=== PATIENT | female | born 1980 | race Caucasian/White ===

== ENCOUNTER 2017-09-01 07:30 | Emergency (ER) | payer OTHER ==
--- NOTE | 2017-09-01 08:01 | ER Document Report ---
ED General - General Chief Complaint: Fall Injury Stated Complaint: FALL LEG PAIN Time Seen by Provider: 09/01/17 07:33 Mode of Arrival: Medic Information source: Patient Notes: 36-year-old female states that she was intoxicated last night and fell multiple times, did not think anything of her injuries today she awoke and could not bear weight on her right leg. Patient brought in by EMS TRAVEL OUTSIDE OF THE [place] IN LAST 30 DAYS: No - HPI Onset: This morning Onset/Duration: Sudden Quality of pain: Sharp Severity: Severe Pain Level: 5 Associated symptoms: Body/muscle aches Exacerbated by: Movement Relieved by: Denies Similar symptoms previously: No Recently seen / treated by doctor: No - Related Data Allergies/Adverse Reactions: dexamethasone [From Decadron] Allergy (Verified 09/01/17 07:51) diazepam [From Valium] Allergy (Verified 09/01/17 07:51) diphenhydramine [From Benadryl] Allergy (Verified 09/01/17 07:51) haloperidol lactate [From Haldol] Allergy (Verified 09/01/17 07:51) ketorolac [From Toradol] Allergy (Verified 09/01/17 07:51) metoclopramide HCl [From Reglan] Allergy (Verified 09/01/17 07:51) tramadol [Tramadol] Allergy (Verified 09/01/17 07:51) Past Medical History - Social History Smoking Status: Never Smoker Cigarette use (# per day): No Chew tobacco use (# tins/day): No Smoking Education Provided: No Family History: Arthritis, CAD, CVA, Hyperlipidemia, Hypertension, Malignancy Pulmonary Medical History: Reports: Hx Asthma, Hx Bronchitis - In [facility] Neurological Medical History: Reports: Hx Seizures - 3 years ago, told it was from a medication Musculoskeltal Medical History: Reports Hx Arthritis, Reports Hx Musculoskeletal Deformity, Reports Hx Musculoskeletal Trauma Traumatic Medical History: Reports: Hx Fractures - avascular necrosis Past Surgical History: Reports: Hx Appendectomy, Hx Cholecystectomy, Hx Orthopedic Surgery - core decompression bilateral hips. Denies: Hx Hysterectomy , Hx Pacemaker - Immunizations Immunizations up to date: Yes Hx Diphtheria, Pertussis, Tetanus Vaccination: Yes Review of Systems - Review of Systems Notes: REVIEW OF SYSTEMS: CONSTITUTIONAL : Denies fever, chills, or sweats. Denies recent illness. EENT: Denies eye, ear, throat, or mouth pain or symptoms. Denies nasal or sinus congestion or discharge. Denies throat, tongue, or mouth swelling or difficulty swallowing. CARDIOVASCULAR: Denies chest pain. Denies palpitations or racing or irregular heart beat. Denies ankle edema. RESPIRATORY: Denies cough, cold, or chest congestion. Denies shortness of breath, difficulty breathing, or wheezing. GASTROINTESTINAL: Denies abdominal pain or distention. Denies nausea, vomiting , or diarrhea. Denies blood in vomitus, stools, or per rectum. Denies black, tarry stools. Denies constipation. GENITOURINARY: Denies difficulty urinating, painful urination, burning, frequency, blood in urine, or discharge. FEMALE GENITOURINARY: Denies vaginal bleeding, heavy or abnormal periods, irregular periods. Denies vaginal discharge or odor. MUSCULOSKELETAL: Admits to right leg pain SKIN: Denies rash, lesions or sores. HEMATOLOGIC : Denies easy bruising or bleeding. LYMPHATIC: Denies swollen, enlarged glands. NEUROLOGICAL: Denies confusion or altered mental status. Denies passing out or loss of consciousness. Denies dizziness or lightheadedness. Denies headache. Denies weakness or paralysis or loss of use of either side. Denies problems with gait or speech. Denies sensory loss, numbness, or tingling. Denies seizures. PSYCHIATRIC: Denies anxiety or stress. Denies depression, suicidal ideation, or homicidal ideation. ALL OTHER SYSTEMS REVIEWED AND NEGATIVE. PHYSICAL EXAMINATION: GENERAL: Well-appearing, well-nourished and in no acute distress. HEAD: Atraumatic, normocephalic. EYES: Pupils equal round and reactive to light, extraocular movements intact, conjunctiva are normal. ENT: Nares patent, oropharynx clear without exudates. Moist mucous membranes. NECK: Normal range of motion, supple without lymphadenopathy LUNGS: Breath sounds clear to auscultation bilaterally and equal. No wheezes rales or rhonchi. HEART: Regular rate and rhythm without murmurs ABDOMEN: Soft, nontender, nondistended abdomen. No guarding, no rebound. No masses appreciated. Female : deferred Musculoskeletal: Limited range of motion of the right lower extremity secondary to pain, patient is able to move her digits pulses are intact foot is warm to touch NEUROLOGICAL: Cranial nerves grossly intact. Normal speech, normal gait. Normal sensory, motor exams PSYCH: Normal mood, normal affect. SKIN: Warm, Dry, normal turgor, no rashes or lesions noted. Dictation was performed using [employer] voice recognition software Course - Re-evaluation Re-evalutation: 09/01/17 08:01 Patient given Dilaudid prior to arrival x-ray immediately ordered 09/01/17 08:33 [facility] paged for transfer due to xray findings 09/01/17 09:02 [facility] surgeon stated pt can just follow up and to place in splint [place] paged 09/01/17 09:30 Dr Fabiola dawkins accepts patient for transfer to ED - Diagnostic Test Radiology reviewed: Image reviewed, Reports reviewed Discharge - Discharge Clinical Impression: Tibia/fibula fracture Qualifiers: Encounter type: initial encounter Fracture type: closed Laterality: right Qualified Code(s): S82.201A - Unspecified fracture of shaft of right tibia, initial encounter for closed fracture; S82.401A - Unspecified fracture of shaft of right fibula, initial encounter for closed fracture; S82.401A - Unspecified fracture of shaft of right fibula, initial encounter for closed fracture Condition: Stable Disposition: [facility]
[2017-09-01] MEDS ORDERED: FENTANYL CITRATE INJ/PF 100 MCG/2 ML AMPUL IV ONE (08:16)
--- NOTE | 2017-09-01 09:06 | RADIOLOGY REPORT (SQ) ---
EXAM DESCRIPTION: TIBIA FIBULA RIGHT COMPLETED DATE/TIME: 09/01/2017 8:20 am REASON FOR STUDY: fall injury mid shaft COMPARISON: None. NUMBER OF VIEWS: Two views. TECHNIQUE: Two radiographic images acquired of the right tibia and fibula to include the knee and an kle in at least one projection. LIMITATIONS: None. FINDINGS: MINERALIZATION: Normal. BONES: Lower 3rd right tibial diaphysis spiral fracture with lateral displacement of the distal fract ure fragment. No over riding of fracture fragments. Accompanying spiral fracture of the proximal and distal right fibular metaphysis. Nonstandard radiographic positioning at the ankle, however, ankle mortise does not appear disrupted. Knee joint intact. SOFT TISSUES: No obvious swelling or foreign body. OTHER: No other significant finding. IMPRESSION: Acute spiral fractures of the distal right tibia and proximal and distal right fibula. No gross disruption of the ankle mortise. TECHNICAL DOCUMENTATION: JOB ID: [id number]- All Rights Reserved
[2017-09-01] MEDS ORDERED: HYDROMORPHONE HCL INJ/PF 2 MG/ML AMPULE IV ONE (09:41)
[2017-09-01 09:57] VITALS: BP 129/110
== END 2017-09-01 10:15 | disposition short-term general hospital (02) ==
LOC: ER 07:30
DX: S82.241A Displaced spiral fracture of shaft of right tibia, initial encounter for closed fracture (principal); S82.441A Displaced spiral fracture of shaft of right fibula, initial encounter for closed fracture; W19.XXXA Unspecified fall, initial encounter; Y93.89 Activity, other specified; J45.909 Unspecified asthma, uncomplicated; Z88.8 Allergy status to other drugs, medicaments and biological substances
CPT/HCPCS: 99284; 96374; 73590; 96375; 29505; J3010; J1170

== ENCOUNTER 2017-09-16 09:48 | Emergency (ER) | payer OTHER ==
[2017-09-16] MEDS ORDERED: ONDANSETRON HCL INJ/PF 4 MG/2 ML SDV IM ONE (10:02)
[2017-09-16] MEDS ORDERED: HYDROMORPHONE HCL INJ/PF 2 MG/ML AMPULE IM ONE ×2 (10:02→11:33)
[2017-09-16] MEDS ORDERED: ONDANSETRON 4 MG TAB.RAPDIS PO ONE (10:04)
[2017-09-16] MEDS ORDERED: PROCHLORPERAZINE EDISYLATE INJ 10 MG/2 ML VIAL IM ONE (10:04)
--- NOTE | 2017-09-16 10:05 | ER Document Report ---
ED Extremity Problem, Lower - General Chief Complaint: Leg Pain Stated Complaint: LEG PAIN Time Seen by Provider: 09/16/17 09:58 Mode of Arrival: Wheelchair Information source: Patient, Relative, [facility] Records Notes: This 36-year-old female patient comes emergency room for severe pain in her right leg. She was seen here on 09-16 after suffering a fall causing a displaced spiral fracture to her right tibia and displaced fractures of the right proximal fibula and distal fibula. She was transferred to [facility] where she had a michael placed in the tibia, a screw placed in the distal fibula fracture, and the proximal fibula fracture was manipulated into position. She presently has Percocet for pain, she states it causes severe nausea and she cannot tolerate the pain medication and the pain is getting out of control. She was not prescribed any nausea medication to take with the Percocet. There has been no other injury or event to worsen her pain other than the nausea and inability to keep down the pain medication. She is asking for medication for nausea control and pain relief at this time to "get ahead of the pain" so that she can control it with her oral medications. There are no other complaints. TRAVEL OUTSIDE OF THE [place] IN LAST 30 DAYS: No - Related Data Allergies/Adverse Reactions: dexamethasone [From Decadron] Allergy (Verified 09/16/17 09:49) diazepam [From Valium] Allergy (Verified 09/16/17 09:49) diphenhydramine [From Benadryl] Allergy (Verified 09/16/17 09:49) haloperidol lactate [From Haldol] Allergy (Verified 09/16/17 09:49) ketorolac [From Toradol] Allergy (Verified 09/16/17 09:49) metoclopramide HCl [From Reglan] Allergy (Verified 09/16/17 09:49) tramadol [Tramadol] Allergy (Verified 09/16/17 09:49) Past Medical History - General Information source: Patient, Relative, [facility] Records - Social History Smoking Status: Never Smoker Cigarette use (# per day): No Chew tobacco use (# tins/day): No Smoking Education Provided: No Frequency of alcohol use: Occasional Drug Abuse: None Lives with: Family, Spouse/Significant other Family History: Arthritis, CAD, CVA, Hyperlipidemia, Hypertension, Malignancy Patient has suicidal ideation: No Patient has homicidal ideation: No - Past Medical History Cardiac Medical History: Reports: None Pulmonary Medical History: Reports: Hx Asthma, Hx Bronchitis - In college EENT Medical History: Reports: None Neurological Medical History: Reports: Hx Seizures - 3 years ago, told it was from a medication Endocrine Medical History: Reports: None Renal/ Medical History: Reports: None GI Medical History: Reports: None Musculoskeltal Medical History: Reports Hx Arthritis, Reports Hx Musculoskeletal Deformity, Reports Hx Musculoskeletal Trauma Psychiatric Medical History: Reports: None Traumatic Medical History: Reports: Hx Fractures - avascular necrosis Past Surgical History: Reports: Hx Appendectomy, Hx Cholecystectomy, Hx Orthopedic Surgery - core decompression bilateral hips - Immunizations Immunizations up to date: Yes Hx Diphtheria, Pertussis, Tetanus Vaccination: Yes Review of Systems - Review of Systems Constitutional: No symptoms reported EENT: No symptoms reported Cardiovascular: No symptoms reported Respiratory: No symptoms reported Gastrointestinal: See HPI Genitourinary: No symptoms reported Musculoskeletal: See HPI Skin: No symptoms reported Hematologic/Lymphatic: No symptoms reported Neurological/Psychological: No symptoms reported Physical Exam - Vital signs Vitals: Temp Resp BP Pulse Ox 98.8 F 20 120/86 H 100 09/16/17 09:56 09/16/17 09:56 09/16/17 09:56 09/16/17 09:56 Interpretation: Tachycardic - General General appearance: Alert, Anxious In distress: Moderate - HEENT Head: Normocephalic, Atraumatic Eyes: Normal Pupils: PERRL Neck: Normal - Respiratory Respiratory status: No respiratory distress - Cardiovascular Rhythm: Regular, Tachycardia - Abdominal Inspection: Normal - Back Back: Normal - Extremities General upper extremity: Normal inspection General lower extremity: Other - There is a short leg walking boot on the right lower extremity. The boot and sock were removed. The wounds on the leg and ankle region have intact sutures, no erythema, no drainage and no swelling. The ankle itself has only very minimal swelling. - Neurological Neuro grossly intact: Yes - Psychological Associated symptoms: Anxious - Skin Skin Temperature: Warm Skin Moisture: Dry Skin Color: Normal Course - Re-evaluation Re-evalutation: 09/16/17 12:23 Patient reports she does feel much better at this time. She states she only needs medication for nausea, she has plenty of pain medication and has a follow- up appointment this week. - Vital Signs Vital signs: Temp Pulse Resp BP Pulse Ox 97.9 F 124 H 16 106/75 99 09/16/17 10:58 09/16/17 10:58 09/16/17 10:58 09/16/17 10:58 09/16/17 10:58 Discharge - Discharge Clinical Impression: Inadequate pain control Nausea and vomiting Qualifiers: Vomiting type: unspecified Vomiting Intractability: non-intractable Qualified Code(s): R11.2 - Nausea with vomiting, unspecified Condition: Stable Disposition: HOME, SELF-CARE Additional Instructions: Take the nausea medicine a little while before you take your pain medicine. Follow-up with your doctor this week as scheduled. RETURN TO THE EMERGENCY ROOM IF ANY NEW OR WORSENING SYMPTOMS. Prescriptions: Ondansetron HCl [Zofran 8 mg Tablet] 8 mg PO Q6 PRN #30 tablet PRN Reason:
[2017-09-16] MEDS ORDERED: OXYCODONE-ACETAMINOPHEN 5-325 MG TABLET PO ONE (10:53)
[2017-09-16 10:58] VITALS: BP 106/75
== END 2017-09-16 12:34 | disposition home or self-care (01) ==
LOC: ER 09:48
DX: M79.604 Pain in right leg (principal); R11.2 Nausea with vomiting, unspecified; S82.241D Displaced spiral fracture of shaft of right tibia, subsequent encounter for closed fracture with routine healing; S82.441D Displaced spiral fracture of shaft of right fibula, subsequent encounter for closed fracture with routine healing; X58.XXXD Exposure to other specified factors, subsequent encounter; Z79.899 Other long term (current) drug therapy
CPT/HCPCS: 99283; 96372; S0119; J1170; J0780

== ENCOUNTER 2017-09-23 10:37 | Emergency (ER) | payer OTHER ==
[2017-09-23] MEDS ORDERED: HYDROMORPHONE HCL INJ/PF 2 MG/ML AMPULE IM ONE (11:08)
[2017-09-23] MEDS ORDERED: PROMETHAZINE HCL INJ 50 MG/1 ML VIAL IM ONE (11:08)
--- NOTE | 2017-09-23 11:09 | ER Document Report ---
ED General - General Chief Complaint: Leg Pain Stated Complaint: VOMITING Time Seen by Provider: 09/23/17 11:08 Mode of Arrival: Wheelchair Information source: Patient Notes: 37-year-old female who had tib-fib fracture presents with complaints of leg pain nausea vomiting. Patient has had intermittent intractable pain not controlled by her hydrocodone. She has been vomiting the past 2 days has not helped her pain medication down. Patient has been taking Zofran with no improvement of symptoms TRAVEL OUTSIDE OF THE [place] IN LAST 30 DAYS: No - HPI Onset: Other Onset/Duration: Waxing and waning Quality of pain: Achy Severity: Mild Pain Level: 2 Associated symptoms: Body/muscle aches Exacerbated by: Movement Relieved by: Denies Similar symptoms previously: Yes Recently seen / treated by doctor: Yes - Related Data Allergies/Adverse Reactions: dexamethasone [From Decadron] Allergy (Verified 09/16/17 09:49) diazepam [From Valium] Allergy (Verified 09/16/17 09:49) diphenhydramine [From Benadryl] Allergy (Verified 09/16/17 09:49) haloperidol lactate [From Haldol] Allergy (Verified 09/16/17 09:49) ketorolac [From Toradol] Allergy (Verified 09/16/17 09:49) metoclopramide HCl [From Reglan] Allergy (Verified 09/16/17 09:49) tramadol [Tramadol] Allergy (Verified 09/16/17 09:49) Past Medical History - Social History Smoking Status: Current Every Day Smoker Cigarette use (# per day): Yes Chew tobacco use (# tins/day): No Smoking Education Provided: No Family History: Arthritis, CAD, CVA, Hyperlipidemia, Hypertension, Malignancy Pulmonary Medical History: Reports: Hx Asthma, Hx Bronchitis - In college Neurological Medical History: Reports: Hx Seizures - 3 years ago, told it was from a medication Renal/ Medical History: Denies: Hx Peritoneal Dialysis Musculoskeltal Medical History: Reports Hx Arthritis, Reports Hx Musculoskeletal Deformity, Reports Hx Musculoskeletal Trauma Traumatic Medical History: Reports: Hx Fractures - avascular necrosis Past Surgical History: Reports: Hx Appendectomy, Hx Cholecystectomy, Hx Orthopedic Surgery - core decompression bilateral hips. Denies: Hx Hysterectomy , Hx Pacemaker - Immunizations Immunizations up to date: Yes Hx Diphtheria, Pertussis, Tetanus Vaccination: Yes Review of Systems - Review of Systems Notes: REVIEW OF SYSTEMS: CONSTITUTIONAL : Denies fever, chills, or sweats. Denies recent illness. EENT: Denies eye, ear, throat, or mouth pain or symptoms. Denies nasal or sinus congestion or discharge. Denies throat, tongue, or mouth swelling or difficulty swallowing. CARDIOVASCULAR: Denies chest pain. Denies palpitations or racing or irregular heart beat. Denies ankle edema. RESPIRATORY: Denies cough, cold, or chest congestion. Denies shortness of breath, difficulty breathing, or wheezing. GASTROINTESTINAL: Denies abdominal pain or distention. Denies nausea, vomiting , or diarrhea. Denies blood in vomitus, stools, or per rectum. Denies black, tarry stools. Denies constipation. GENITOURINARY: Denies difficulty urinating, painful urination, burning, frequency, blood in urine, or discharge. FEMALE GENITOURINARY: Denies vaginal bleeding, heavy or abnormal periods, irregular periods. Denies vaginal discharge or odor. MUSCULOSKELETAL: Admits to leg pain SKIN: Denies rash, lesions or sores. HEMATOLOGIC : Denies easy bruising or bleeding. LYMPHATIC: Denies swollen, enlarged glands. NEUROLOGICAL: Denies confusion or altered mental status. Denies passing out or loss of consciousness. Denies dizziness or lightheadedness. Denies headache. Denies weakness or paralysis or loss of use of either side. Denies problems with gait or speech. Denies sensory loss, numbness, or tingling. Denies seizures. PSYCHIATRIC: Denies anxiety or stress. Denies depression, suicidal ideation, or homicidal ideation. ALL OTHER SYSTEMS REVIEWED AND NEGATIVE. PHYSICAL EXAMINATION: GENERAL: Well-appearing, well-nourished and in no acute distress. HEAD: Atraumatic, normocephalic. EYES: Pupils equal round and reactive to light, extraocular movements intact, conjunctiva are normal. ENT: Nares patent, oropharynx clear without exudates. Moist mucous membranes. NECK: Normal range of motion, supple without lymphadenopathy LUNGS: Breath sounds clear to auscultation bilaterally and equal. No wheezes rales or rhonchi. HEART: Tachycardic ABDOMEN: Soft, nontender, nondistended abdomen. No guarding, no rebound. No masses appreciated. Female : deferred Musculoskeletal: Brace in place NEUROLOGICAL: Cranial nerves grossly intact. Normal speech, normal gait. Normal sensory, motor exams PSYCH: Tearful SKIN: Warm, Dry, normal turgor, no rashes or lesions noted. Dictation was performed using [employer] voice recognition software Physical Exam - Vital signs Vitals: Temp Pulse Resp BP Pulse Ox 98.0 F 148 H 18 136/82 H 98 09/23/17 10:43 09/23/17 10:43 09/23/17 10:43 09/23/17 10:43 09/23/17 10:43 Course - Re-evaluation Re-evalutation: 09/23/17 13:05 X-ray was performed no abnormality noted. Patient was given 2 injections of pain medication as well as nausea control. Patient will be discharged home with Phenergan both oral and rectal. Overall she looks well is in no distress upon discharge, her heart rate has improved significantly Patient was given pain control for home as well After performing a Medical Screening Examination, I estimate there is LOW risk for INTRACRANIAL HEMORRHAGE, UNSTABLE SPINE FRACTURE, CENTRAL CORD SYNDROME, CAUDA EQUINA, THORACIC AORTIC DISSECTION, PNEUMOTHORAX, PERFORATED BOWEL, RUPTURED ABDOMINAL AORTIC ANEURYSM, ACUTE TENDON RUPTURE, COMPARTMENT SYNDROME, or OPEN FRACTURE, thus I consider the discharge disposition reasonable. Also, there is no evidence or peritonitis, sepsis, or toxicity. I have reevaluated this patient multiple times and no significant life threatening changes are noted. The patient and I have discussed the diagnosis and risks, and we agree with discharging home to follow-up with their primary doctor with the understanding that symptoms and presentations can change. We also discussed returning to the Emergency Department immediately if new or worsening symptoms occur. We have discussed the symptoms which are most concerning (e.g., bloody stool, fever, changing or worsening pain, vomiting) that necessitate immediate return. - Vital Signs Vital signs: Temp Pulse Resp BP Pulse Ox 98.1 F 111 H 18 122/88 H 99 09/23/17 12:32 09/23/17 12:32 09/23/17 12:32 09/23/17 12:32 09/23/17 12:32 - Diagnostic Test Radiology reviewed: Image reviewed, Reports reviewed - No acute abnormality Discharge - Discharge Clinical Impression: Inadequate pain control Tibia/fibula fracture Qualifiers: Encounter type: initial encounter Fracture type: closed Laterality: right Qualified Code(s): S82.201A - Unspecified fracture of shaft of right tibia, initial encounter for closed fracture; S82.401A - Unspecified fracture of shaft of right fibula, initial encounter for closed fracture; S82.401A - Unspecified fracture of shaft of right fibula, initial encounter for closed fracture Nausea and vomiting Qualifiers: Vomiting type: unspecified Vomiting Intractability: non-intractable Qualified Code(s): R11.2 - Nausea with vomiting, unspecified Condition: Stable Disposition: HOME, SELF-CARE Instructions: Vomiting ([facility]) Additional Instructions: Please follow-up with your orthopedic surgeon for further evaluation care Prescriptions: Morphine Sulfate 15 mg PO Q8 #10 tablet Promethazine HCl [Phenergan 25 mg Tablet] 1 - 2 tab PO Q6H PRN #15 tablet PRN Reason: Promethazine HCl [Promethegan] 25 mg RC Q6 #14 supp.rect
--- NOTE | 2017-09-23 11:40 | RADIOLOGY REPORT (SQ) ---
EXAM DESCRIPTION: TIBIA FIBULA RIGHT COMPLETED DATE/TIME: 09/23/2017 11:27 am REASON FOR STUDY: post surgical COMPARISON: 09/01/2017 NUMBER OF VIEWS: Two views. TECHNIQUE: Two radiographic images acquired of the right tibia and fibula to include the knee and an kle in at least one projection. LIMITATIONS: None. FINDINGS: MINERALIZATION: Normal. BONES: Status post ORIF distal tibial spiral fracture with hardware intact. Status post ORIF distal fibular fracture with hardware intact. Stable appearance of proximal fibular fracture. SOFT TISSUES: No obvious swelling or foreign body. OTHER: No other significant finding. IMPRESSION: STATUS POST INTERNAL FIXATION OF DISTAL TIBIAL AND DISTAL FIBULAR FRACTURES WITHOUT HARD LEMUS COMPLICATION. STABLE APPEARANCE PROXIMAL FIBULAR FRACTURE. TECHNICAL DOCUMENTATION: JOB ID: [id number] [employer]- All Rights Reserved
[2017-09-23] MEDS ORDERED: FENTANYL CITRATE INJ/PF 100 MCG/2 ML AMPUL IM ONE (12:05)
[2017-09-23 12:34] VITALS: BP 122/88
== END 2017-09-23 12:39 | disposition home or self-care (01) ==
LOC: ER 10:37
DX: S82.401A Unspecified fracture of shaft of right fibula, initial encounter for closed fracture (principal); S82.201A Unspecified fracture of shaft of right tibia, initial encounter for closed fracture; R11.2 Nausea with vomiting, unspecified; M79.604 Pain in right leg; M79.1 Myalgia; X58.XXXA Exposure to other specified factors, initial encounter; F17.210 Nicotine dependence, cigarettes, uncomplicated
CPT/HCPCS: 99283; 96372; 96374; 73590; J3010; J1170; J2550

== ENCOUNTER 2017-10-10 18:34 | Emergency (ER) | payer OTHER ==
[2017-10-10] MEDS ORDERED: MORPHINE SULFATE 10 MG/ML INJ IM ONE (19:34)
[2017-10-10] MEDS ORDERED: HYDROCODONE/ACETAMINOPHEN 5-325 MG (6 TAB/ER DISP) PO PRN (19:35)
--- NOTE | 2017-10-10 19:41 | ER Document Report ---
HPI - HPI Patient complains to provider of: leg pain Pain Level: 4 Context: 37 yo female c/o right ankle pain. pt had spiral fracture of distal tib/fib 09/01 with closed reduction on 09/[address] Bailey ([email or web address]) in [place]. Pt was seen by orthopedist today who was supposed to call in pain medication but when pt went to pharm,, no Rx. pt reports increased pain after office today due to manipulation of ankle. no chest pain or shortness of breath Associated Symptoms: None Exacerbated by: Movement Relieved by: Denies Similar symptoms previously: Yes Recently seen / treated by doctor: Yes - REPRODUCTIVE Reproductive: DENIES: : Past Medical History - General Information source: Patient - Social History Smoking Status: Current Every Day Smoker Frequency of alcohol use: None Drug Abuse: None Family History: Arthritis, CAD, CVA, Hyperlipidemia, Hypertension, Malignancy Pulmonary Medical History: Reports: Hx Asthma, Hx Bronchitis - In [facility] Neurological Medical History: Reports: Hx Seizures - 3 years ago, told it was from a medication Renal/ Medical History: Denies: Hx Peritoneal Dialysis Musculoskeltal Medical History: Reports Hx Arthritis, Reports Hx Musculoskeletal Deformity, Reports Hx Musculoskeletal Trauma Traumatic Medical History: Reports: Hx Fractures - avascular necrosis Past Surgical History: Reports: Hx Appendectomy, Hx Cholecystectomy, Hx Orthopedic Surgery - core decompression bilateral hips. Denies: Hx Hysterectomy , Hx Pacemaker - Immunizations Immunizations up to date: Yes Hx Diphtheria, Pertussis, Tetanus Vaccination: Yes Vertical Provider Document - CONSTITUTIONAL Agree With Documented VS: Yes Exam Limitations: No Limitations - INFECTION CONTROL TRAVEL OUTSIDE OF THE [place] IN LAST 30 DAYS: No - HEENT HEENT: Atraumatic, PERRLA - NECK Neck: Normal Inspection, Supple - RESPIRATORY Respiratory: Breath Sounds Normal, No Respiratory Distress O2 Sat by Pulse Oximetry: 100 - CARDIOVASCULAR Cardiovascular: Regular Rate, Regular Rhythm - MUSCULOSKELETAL/EXTREMETIES Musculoskeletal/Extremeties: Tender - healing incisions with focal to right dorsal foot and right medial tibial tuberosity. right foot with strong pedal pulse. right foot warm to touch. cap refill < 3 sec. no s/s infection - NEURO Level of Consciousness: Awake, Alert, Appropriate Course - Re-evaluation Re-evalutation: 10/10/17 19:52 no sign of compartment syndrome. no circulatory compromise. will treat for pain here and DC with dispense pack of [place]. pt instructed to call orthopedist in AM for further pain medication. pt verbalizes understanding, agreeable with plan and stable for discharge - Vital Signs Vital signs: Temp Pulse Resp BP Pulse Ox 99.3 F 129 H 18 128/94 H 100 10/10/17 18:47 10/10/17 18:47 10/10/17 18:47 10/10/17 18:47 10/10/17 18:47 Discharge - Discharge Clinical Impression: Right leg pain, Tibia/fibula fracture Condition: Stable Disposition: HOME, SELF-CARE Instructions: Oral Narcotic Medication ([facility]), Pain Medication Injection ([facility]) Additional Instructions: You have been given an injection for pain and a short course of oral pain med Please call your orthopedist in AM for further pain management
[2017-10-10 20:16] VITALS: BP 132/80
== END 2017-10-10 20:16 | disposition home or self-care (01) ==
LOC: ER 18:34
DX: S82.241D Displaced spiral fracture of shaft of right tibia, subsequent encounter for closed fracture with routine healing (principal); S82.441D Displaced spiral fracture of shaft of right fibula, subsequent encounter for closed fracture with routine healing; M25.571 Pain in right ankle and joints of right foot; X58.XXXD Exposure to other specified factors, subsequent encounter
CPT/HCPCS: 99283; 96372; J2270

== ENCOUNTER 2017-11-12 19:05 | Emergency (ER) | payer OTHER ==
[2017-11-12] MEDS ORDERED: NORMAL SALINE 1000 ML 1,000 ML IV ONE (19:46)
[2017-11-12] MEDS ORDERED: ONDANSETRON HCL INJ/PF 4 MG/2 ML SDV IV ONE (19:47)
[2017-11-12] MEDS ORDERED: HYDROMORPHONE HCL INJ/PF 2 MG/ML AMPULE IV ONE (19:47)
--- NOTE | 2017-11-12 19:48 | ER Document Report ---
ED Medical Screen (RME) - General Chief Complaint: Nausea/Vomiting/Diarrhea Stated Complaint: STOMACH PAIN Time Seen by Provider: 11/12/17 19:43 Notes: Patient has a history of chronic pancreatitis. She states this feels like an episode of her pancreatitis. She has severe abdominal pain with vomiting. TRAVEL OUTSIDE OF THE [place] IN LAST 30 DAYS: No - Related Data Allergies/Adverse Reactions: dexamethasone [From Decadron] Allergy (Verified 11/12/17 19:15) diazepam [From Valium] Allergy (Verified 11/12/17 19:15) diphenhydramine [From Benadryl] Allergy (Verified 11/12/17 19:15) haloperidol lactate [From Haldol] Allergy (Verified 11/12/17 19:15) ketorolac [From Toradol] Allergy (Verified 11/12/17 19:15) metoclopramide HCl [From Reglan] Allergy (Verified 11/12/17 19:15) tramadol [Tramadol] Allergy (Verified 11/12/17 19:15) Past Medical History Pulmonary Medical History: Reports: Hx Asthma, Hx Bronchitis - In college Neurological Medical History: Reports: Hx Seizures - 3 years ago, told it was from a medication Renal/ Medical History: Denies: Hx Peritoneal Dialysis Musculoskeltal Medical History: Reports Hx Arthritis, Reports Hx Musculoskeletal Deformity, Reports Hx Musculoskeletal Trauma Traumatic Medical History: Reports: Hx Fractures - avascular necrosis Past Surgical History: Reports: Hx Appendectomy, Hx Cholecystectomy, Hx Orthopedic Surgery - core decompression bilateral hips. Denies: Hx Hysterectomy , Hx Pacemaker - Immunizations Immunizations up to date: Yes Hx Diphtheria, Pertussis, Tetanus Vaccination: Yes Physical Exam - Vital signs Vitals: Temp Pulse Resp BP Pulse Ox 98.9 F 127 H 20 148/93 H 99 11/12/17 19:23 11/12/17 19:23 11/12/17 19:23 11/12/17 19:23 11/12/17 19:23 Course - Vital Signs Vital signs: Temp Pulse Resp BP Pulse Ox 98.9 F 127 H 20 148/93 H 99 11/12/17 19:23 11/12/17 19:23 11/12/17 19:23 11/12/17 19:23 11/12/17 19:23
[2017-11-12 21:50] LABS: ABSOLUTE BASOPHILS # (AUTO) 0.1 10^3/uL (0.0-0.2); ABSOLUTE EOSINOPHILS # (AUTO) 0.1 10^3/uL (0.0-0.6); ABSOLUTE LYMPHOCYTES (AUTO) 3.4 10^3/uL (0.5-4.7); ABSOLUTE MONOCYTES (AUTO) 0.8 10^3/uL (0.1-1.4); ABSOLUTE NEUT (AUTO) 6.4 10^3/uL (1.7-8.2); BASOPHILS % (AUTO) 0.6 % (0-2); EOSINOPHILS % (AUTO) 1.3 % (0-6); HEMATOCRIT 40.8 % (36.0-47.0); LYMPHOCYTES % (AUTO) 31.3 % (13-45); MEAN CORPUSCULAR HEMOGLOBIN 30.1 pg (27.0-33.4); MEAN CORPUSCULAR HGB CONC 34.2 g/dL (32.0-36.0); MEAN CORPUSCULAR VOLUME 88 fl (80-97); MONOCYTES % (AUTO) 7.2 % (3-13); PLATELET COUNT 402 10^3/uL (150-450); RED BLOOD COUNT 4.64 10^6/uL (3.72-5.28); RED CELL DISTRIBUTION WIDTH 13.3 % (11.5-14.0); SEGMENTED NEUTROPHILS % (AUTO) 59.6 % (42-78); TOTAL CELLS COUNTED % (AUTO) 100 %; WHITE BLOOD COUNT 10.7 10^3/uL (4.0-10.5)
[2017-11-12 22:04] LABS: ALANINE AMINOTRANSFERASE 24 U/L (9-52); ALBUMIN 4.6 g/dL (3.5-5.0); ALKALINE PHOSPHATASE 130 U/L (38-126); ANION GAP 10 (5-19); ASPARTATE AMINO TRANSFERASE 16 U/L (14-36); BILIRUBIN,DIRECT 0.4 mg/dL (0.0-0.4); BILIRUBIN,TOTAL 0.4 mg/dL (0.2-1.3); BLOOD UREA NITROGEN 15 mg/dL (7-20); CALCIUM 10.3 mg/dL (8.4-10.2); CARBON DIOXIDE 25 mmol/L (22-30); CHLORIDE 107 mmol/L (98-107); GLUCOSE 103 mg/dL (75-110); LIPASE 246.2 U/L (23-300); POTASSIUM 4.1 mmol/L (3.6-5.0); SODIUM 142.1 mmol/L (137-145); TOTAL PROTEIN 7.7 g/dL (6.3-8.2)
[2017-11-12 22:42] LABS: APPEARANCE,URINE CLOUDY; BILIRUBIN,URINE NEGATIVE (NEGATIVE); CALCIUM OXALATE CRYSTALS,URINE TOO NUMEROUS TO CNT /HPF; COLOR,URINE YELLOW; GLUCOSE, URINE NEGATIVE (NEGATIVE); KETONES,URINE TRACE mg/dL (NEGATIVE); LEUKOCYTE ESTERASE,URINE SMALL (NEGATIVE); NITRITE,URINE NEGATIVE (NEGATIVE); PROTEIN,URINE 30 mg/dL (NEGATIVE); URINE SPECIFIC GRAVITY 1.038; UROBILINOGEN,URINE NEGATIVE mg/dL (<2.0)
[2017-11-13] MEDS ORDERED: HYDROMORPHONE HCL INJ/PF 2 MG/ML AMPULE IV ONE (00:23)
[2017-11-13] MEDS ORDERED: HYOSCYAMINE SULFATE 0.125 MG TABLET PO ONE (00:24)
[2017-11-13] MEDS ORDERED: ONDANSETRON ODT 4 MG TAB (6 TAB/ER DISP) PO PRN (00:24)
[2017-11-13] MEDS ORDERED: ONDANSETRON HCL INJ/PF 4 MG/2 ML SDV IV ONE (00:24)
--- NOTE | 2017-11-13 00:27 | ER Document Report ---
ED General - General Chief Complaint: Nausea/Vomiting/Diarrhea Stated Complaint: STOMACH PAIN Time Seen by Provider: 11/12/17 19:43 Notes: Patient is a 37-year-old female with a past medical history of chronic recurrent abdominal pain, prior surgical history of a cholecystectomy, appendectomy, and common biliary stent was placed and subsequently removed who presents with generalized abdominal pain with associated vomiting and diarrhea. Patient describes her abdominal pain as a constant, stabbing, migrating pain over the entirety of her abdomen although worse toward the right upper and lower side. She states this feels similar to exacerbations of her abdominal pain that she has had in the past. She reports that she typically has 1-2 episodes per month and then can go months without any abdominal pain. Patient has been evaluated repeatedly in the past in the emergency department for these complaints. She has had 8 CT scans of her abdomen pelvis during that time none of which has shown any acute pathology. Patient reports a history of "chronic pancreatitis" but has not had lipase elevations on many of her recent evaluations and does not require insulin or pancreatic enzymes to suggest this diagnosis. She has followed with a GI physician in the remote past but has never had a colonoscopy or endoscopy. Nothing improves or worsens her symptoms. She notes that she has been able to tolerate oral intake here in the emergency department. She denies any vaginal bleeding, vaginal discharge, chest pain, shortness of breath, fever or constitutional symptoms. TRAVEL OUTSIDE OF THE [place] IN LAST 30 DAYS: No - Related Data Allergies/Adverse Reactions: dexamethasone [From Decadron] Allergy (Verified 11/12/17 19:15) diazepam [From Valium] Allergy (Verified 11/12/17 19:15) diphenhydramine [From Benadryl] Allergy (Verified 11/12/17 19:15) haloperidol lactate [From Haldol] Allergy (Verified 11/12/17 19:15) ketorolac [From Toradol] Allergy (Verified 11/12/17 19:15) metoclopramide HCl [From Reglan] Allergy (Verified 11/12/17 19:15) tramadol [Tramadol] Allergy (Verified 11/12/17 19:15) Past Medical History - General Information source: Patient - Social History Smoking Status: Current Every Day Smoker Chew tobacco use (# tins/day): No Frequency of alcohol use: Occasional Drug Abuse: None Lives with: Spouse/Significant other Family History: Arthritis, CAD, CVA, Hyperlipidemia, Hypertension, Malignancy Patient has suicidal ideation: No Patient has homicidal ideation: No Pulmonary Medical History: Reports: Hx Asthma, Hx Bronchitis - In college Neurological Medical History: Reports: Hx Seizures - 3 years ago, told it was from a medication Renal/ Medical History: Denies: Hx Peritoneal Dialysis Musculoskeltal Medical History: Reports Hx Arthritis, Reports Hx Musculoskeletal Deformity, Reports Hx Musculoskeletal Trauma Traumatic Medical History: Reports: Hx Fractures - avascular necrosis Past Surgical History: Reports: Hx Appendectomy, Hx Cholecystectomy, Hx Orthopedic Surgery - core decompression bilateral hips. Denies: Hx Hysterectomy , Hx Pacemaker - Immunizations Immunizations up to date: Yes Hx Diphtheria, Pertussis, Tetanus Vaccination: Yes Review of Systems - Review of Systems Notes: Constitutional: Negative for fever. HENT: Negative for sore throat. Eyes: Negative for visual changes. Cardiovascular: Negative for chest pain. Respiratory: Negative for shortness of breath. Gastrointestinal: Positive for abdominal pain, vomiting and diarrhea. Genitourinary: Negative for dysuria. Musculoskeletal: Negative for back pain. Skin: Negative for rash. Neurological: Negative for headaches, weakness or numbness. 10 point ROS negative except as marked above and in HPI. Physical Exam - Vital signs Vitals: Temp Pulse Resp BP Pulse Ox 98.9 F 127 H 20 148/93 H 99 11/12/17 19:23 11/12/17 19:23 11/12/17 19:23 11/12/17 19:23 11/12/17 19:23 Interpretation: Tachycardic Notes: PHYSICAL EXAMINATION: GENERAL: Appears moderately uncomfortable but in no acute distress. HEAD: Atraumatic, normocephalic. EYES: Pupils equal round and reactive to light, extraocular movements intact, sclera anicteric, conjunctiva are normal. ENT: nares patent, oropharynx clear without exudates. Moist mucous membranes. NECK: Normal range of motion, supple without lymphadenopathy LUNGS: Breath sounds clear to auscultation bilaterally and equal. No wheezes rales or rhonchi. HEART: Regular rate and rhythm without murmurs ABDOMEN: Soft, diffuse generalized abdominal tenderness most focal to the right upper and mid abdomen, normoactive bowel sounds. No guarding, no rebound. No masses appreciated. EXTREMITIES: Normal range of motion, no pitting or edema. No cyanosis. NEUROLOGICAL: No focal neurological deficits. Moves all extremities spontaneously and on command. PSYCH: Moderately anxious SKIN: Warm, Dry, normal turgor, no rashes or lesions noted. Course - Re-evaluation Re-evalutation: 11/13/17 00:25 Presentation of generalized, intermittent abdominal pain. Patient has a long- standing history of the same, has had 8 CT scans of her abdomen and pelvis since 2011 none of which have revealed any acute pathology. She does have a history of an appendectomy and a cholecystectomy with a post Mery common bile duct stent that has since been removed. Abdominal exam is benign without any focal tenderness. Vitals are normal at the time of arrival. Laboratories are unremarkable without evidence of cystitis, , or leukocytosis. Patient does not have chronic pancreatitis as prior CT scans have not visualized any calcification of the pancreas and lipase have been repeatedly normal. Patient is overall very well in appearance. Based on clinical history and examination I do not suspect an acute appendicitis, tubo-ovarian abscess, related pathology, pelvic inflammatory disease, mesenteric ischemia, or pyelonephritis. I have had an extensive conversation with the patient and her at the bedside regarding the concerning number of CT scans that she has had regarding her chronic abdominal pain since 2012. They have agreed to avoid any further CT scans unless there is something new or different about her abdominal pain which they deny is the case today. They declined any further abdominal imaging today. The exact etiology of her abdominal pain is uncertain but may be related to chronic scar tissue from her multiple prior surgeries versus a possible inflammatory colitis. I have encouraged the patient to follow-up with a GI specialist for consideration of a colonoscopy and/or endoscopy. If this is unremarkable I think it would be reasonable to have a follow-up with a general surgeon for possible diagnostic laparoscopy. At this time will discharge with return precautions and follow-up recommendations. Verbal discharge instructions given a the bedside and opportunity for questions given. Medication warnings reviewed. Patient is in agreement with this plan and has verbalized understanding of return precautions and the need for primary care follow-up in the next 24-72 hours. - Vital Signs Vital signs: Temp Pulse Resp BP Pulse Ox 97.7 F 76 18 121/85 99 11/13/17 01:06 11/13/17 01:06 11/13/17 01:06 11/13/17 01:06 11/13/17 01:06 - Laboratory Result Diagrams: 11/12/17 21:30 11/12/17 21:30 Laboratory results interpreted by me: 11/12/17 11/12/17 11/12/17 21:30 21:30 22:24 WBC 10.7 H Calcium 10.3 H Alkaline Phosphatase 130 H Urine Protein 30 H Urine Ketones TRACE H Ur Leukocyte Esterase SMALL H Discharge - Discharge Clinical Impression: Chronic generalized abdominal pain, Vomiting and diarrhea Condition: Good Disposition: HOME, SELF-CARE Additional Instructions: You have been seen in the Emergency Department (ED) for abdominal pain. Your evaluation did not identify a clear cause of your symptoms but was generally reassuring. Please follow up with your doctor as soon as possible regarding today's emergent visit and the symptoms that are bothering you. Return to the ED if your abdominal pain worsens or fails to improve, you develop bloody vomiting, bloody diarrhea, you are unable to tolerate fluids due to vomiting, fever greater than 101, or other symptoms that concern you. Prescriptions: Hyoscyamine Sulfate [Levsin-Sl] 0.125 mg SL Q12HP PRN #[id number] tab.subl PRN Reason:
[2017-11-13 01:45] VITALS: BP 121/85
== END 2017-11-13 01:30 | disposition home or self-care (01) ==
LOC: ER 19:05
DX: R10.84 Generalized abdominal pain (principal); G89.29 Other chronic pain; R11.2 Nausea with vomiting, unspecified; R19.7 Diarrhea, unspecified; Z90.49 Acquired absence of other specified parts of digestive tract; F17.200 Nicotine dependence, unspecified, uncomplicated
CPT/HCPCS: 96376; 99284; 96374; 96375; 36415; 83690; 85025; 81025; 80053; 81001; J3490; J1170 ×2; J2405 ×2; J7030

== ENCOUNTER 2017-12-16 09:03 | Emergency (ER) | payer OTHER ==
[2017-12-16] MEDS ORDERED: OXYCODONE-ACETAMINOPHEN 5-325 MG TABLET PO ONE (09:28)
--- NOTE | 2017-12-16 09:52 | ER Document Report ---
HPI - HPI Pain Level: 4 Notes: Patient is a 37-year-old female who presents to the ED complaining of right lower leg pain and right ankle pain status post injury 2 days ago the patient states that her foot slipped out from under her on the stairs and she slipped down about 5 steps. Patient states that she did have a michael and plate placed because of the tip/fib/ankle fracture several months ago. Patient states that she has had pain to that leg since then and has an appointment on Sunday to get the screws taken out, but exacerbated her pain status post fall. Patient does take tramadol at home. Patient has not noticed any bruising to her skin, laceration, or abrasions. She did not have any loss of consciousness. No other concerns or complaints. Patient does have a wheelchair and ambulatory assistance at home. Denies any headache, fever, head injury, neck pain, changes in vision/speech/mentation/hearing, URI, sore throat, chest pain, palpitations, syncope, cough, shortness of breath, wheeze, dyspnea, abdominal pain, nausea/vomiting/diarrhea, urinary retention, dysuria, hematuria, loss of control of bowel or bladder, numbness/tingling, saddle anesthesia, muscle paralysis/weakness, or rash. - ROS Systems Reviewed and Negative: Yes All other systems reviewed and negative - CONSTITUTIONAL Constitutional: DENIES: Fever, Chills - CARDIOVASCULAR Cardiovascular: DENIES: Chest pain - RESPIRATORY Respiratory: DENIES: Trouble Breathing, Coughing - REPRODUCTIVE Reproductive: DENIES: : - MUSCULOSKELETAL Musculoskeletal: REPORTS: Extremity pain - RLE s/p fall on Sunday Past Medical History - Social History Smoking Status: Unknown if Ever Smoked Family History: Arthritis, CAD, CVA, Hyperlipidemia, Hypertension, Malignancy Patient has suicidal ideation: No Patient has homicidal ideation: No Pulmonary Medical History: Reports: Hx Asthma, Hx Bronchitis - In college Neurological Medical History: Reports: Hx Seizures - 3 years ago, told it was from a medication Renal/ Medical History: Denies: Hx Peritoneal Dialysis Musculoskeltal Medical History: Reports Hx Arthritis, Reports Hx Musculoskeletal Deformity, Reports Hx Musculoskeletal Trauma Traumatic Medical History: Reports: Hx Fractures - avascular necrosis Past Surgical History: Reports: Hx Appendectomy, Hx Cholecystectomy, Hx Orthopedic Surgery - core decompression bilateral hips. Denies: Hx Hysterectomy , Hx Pacemaker - Immunizations Immunizations up to date: Yes Hx Diphtheria, Pertussis, Tetanus Vaccination: Yes Vertical Provider Document - CONSTITUTIONAL Agree With Documented VS: Yes Notes: PHYSICAL EXAMINATION: GENERAL: Well-appearing, well-nourished and in no acute distress. A&Ox4. Answers questions appropriately. LUNGS: Breath sounds clear to auscultation bilaterally and equal. No wheezes rales or rhonchi. HEART: Regular rate and rhythm without murmurs, rubs, gallops. ABDOMEN: Soft, nontender, nondistended abdomen. No guarding, no rebound. No masses appreciated. Normal bowel sounds present. No CVA tenderness bilaterally. No pulsatile mass Musculoskeletal: Rt LE: FROM to passive/active. Strength 5+/5. No deficits noted. + tenderness to the mid tibia and to the medial ankle. No other bony tenderness. No step-offs, erythema, ecchymosis, swelling, or deformity noted. N/V intact distal. Achilles intact. Back: FROM to passive/active. Strength 5+/5. No vertebral point tenderness, stepoffs, or deformities. No other bony tenderness, erythema, swelling, or ecchymosis. SLR negative b/l. No foot drop Extremities: No cyanosis, clubbing, or edema b/l. Peripheral pulses 2+. Capillary refill less than 2 seconds. Rebecca neg. No calf erythema/swelling/ tenderness. NEUROLOGICAL: MMSE intact. Normal speech, limping gait. Normal sensory, motor exams. Reflexes 2+ b/l. PSYCH: Normal mood, normal affect. SKIN: Warm, Dry, normal turgor, no rashes or lesions noted. - INFECTION CONTROL TRAVEL OUTSIDE OF THE [place] IN LAST 30 DAYS: No - RESPIRATORY O2 Sat by Pulse Oximetry: 100 Course - Re-evaluation Re-evalutation: 12/16/17 10:40 Patient is an afebrile, well-hydrated, 37-year-old female who presents to the ED with right lower leg pain, suspect contusion and possible association with nerve pain status post surgery. Vitals are acceptable. PE is otherwise unremarkable for any neurovascular compromise, obvious tendon/ligament rupture, obvious fracture/dislocation, hardware malfunction, septic joint, DVT. X-ray was unremarkable for any acute pathology. I did give her 1 tablet of 5 mg oxycodone and 15 mg morphine IR due to her pain today, but explained that I will not be sending her home with any narcotics which she is in agreement with. Recommend conservative measures for symptoms with close monitoring. Keep your scheduled appointment with orthopedics on Sunday. Recheck with your PCM in 1 week as well. Return to the ED with any worsening/concerning symptoms otherwise as reviewed discharge. Patient is in agreement. - Vital Signs Vital signs: Temp Pulse Resp BP Pulse Ox 97.9 F 134 H 19 133/88 H 100 12/16/17 09:07 12/16/17 09:07 12/16/17 09:07 12/16/17 09:07 12/16/17 09:07 Discharge - Discharge Clinical Impression: Right leg pain Right ankle pain Qualifiers: Chronicity: acute Qualified Code(s): M25.571 - Pain in right ankle and joints of right foot Condition: Stable Disposition: HOME, SELF-CARE Instructions: Ice & Elevation ([facility]) Additional Instructions: Rest, Ice, Compression, Elevation Use assistance while ambulating at home as needed Tylenol/ibuprofen as needed Light stretches daily Strength exercises as able Moist heat and massage may help F/u with your PCP in 1 week for a recheck Keep your appointment with orthopedics on Sunday Return to the ED with any worsening symptoms and/or development of fever, headache, chest pain, palpitations, syncope, shortness of breath, trouble breathing, abdominal pain, n/v/d, muscle weakness/paralysis, numbness/tingling, swelling, redness, or other worsening symptoms that are concerning to you. Forms: Elevated Blood Pressure Referrals: ORTHOPEDICS [Provider Group] - 12/19/17
--- NOTE | 2017-12-16 10:23 | RADIOLOGY REPORT (SQ) ---
EXAM DESCRIPTION: TIBIA FIBULA RIGHT COMPLETED DATE/TIME: 12/16/2017 9:41 am REASON FOR STUDY: Rt lower leg pain, recent surgery COMPARISON: Right tibia and fibula films 09/01/2017, 09/23/2017 NUMBER OF VIEWS: Two views. TECHNIQUE: Two radiographic images acquired of the right tibia and fibula to include the knee and an kle in at least one projection. LIMITATIONS: None. FINDINGS: MINERALIZATION: Normal. BONES: Old healed spiral fracture distal 3rd right tibia, stabilized with intramedullary nail. Old healed proximal 3rd fibula nondisplaced spiral fracture Old healed distal right fibula spiral fracture with long intramedullary screw. No acute fracture. SOFT TISSUES: No obvious swelling or foreign body. OTHER: No other significant finding. IMPRESSION: Old right tibia and fibula fractures, healed. No lucency around the tibial or fibular hardware worrisome for loosening or infection TECHNICAL DOCUMENTATION: JOB ID: [id number] [employer]- All Rights Reserved Reading location - IP/workstation name: [email or web address]
[2017-12-16] MEDS ORDERED: MORPHINE SULFATE IR 15 MG TABLET PO ONE (10:38)
[2017-12-16 11:33] VITALS: BP 128/93
== END 2017-12-16 11:36 | disposition home or self-care (01) ==
LOC: ER 09:03
DX: M25.571 Pain in right ankle and joints of right foot (principal); M79.661 Pain in right lower leg; W10.9XXA Fall (on) (from) unspecified stairs and steps, initial encounter; Y92.009 Unspecified place in unspecified non-institutional (private) residence as the place of occurrence of the external cause; Z98.890 Other specified postprocedural states; Z79.891 Long term (current) use of opiate analgesic; J45.909 Unspecified asthma, uncomplicated
CPT/HCPCS: 99283